=== PATIENT | female | born 1945 | race Caucasian/White ===

== ENCOUNTER → 2016-11-07 | Outpatient (CLI) | payer OTHER ==
[~2016-11-07] MED LIST: ALBU1AER9 INH; ALUMSUS2 PO; ALVESCO INH; CALCTAB7 PO; DICY10CA55 PO; FBR PO; HYCUDL5 PO; LOSA1TAB PO; MONT1TAB3 PO; OMEP40CA36 PO; WARF5TAB90 PO
[2016-11-07 13:26] LABS: BASO % 0.6 %; BASO ABS # 0.07 K/uL (0-0.2); COMPLETE YES; EOS % 4.6 %; HEMATOCRIT 39.8 % (37-47); IG% 0.3 %; LYMPH % 32.7 %; LYMPH ABS # 3.75 K/uL (1.2-3.4); MEAN CELL VOLUME 93.9 fL (80-100); MEAN CORPUSCULAR HEMOGLOBIN 31.8 pg (25-34); MEAN CORPUSCULAR HGB CONC 33.9 g/dl (32-36); MEAN PLATELET VOLUME 10.2 fL (7.4-10.4); MONO % 12.6 %; NEUT % 49.2 %; PLATELET COUNT 325 K/uL (130-400); RED BLOOD COUNT 4.24 M/uL (4.2-5.4); WHITE BLOOD COUNT 11.47 K/uL (4.8-10.8)
[2016-11-07 13:34] LABS: ALT/SGPT 37 U/L (12-78); AST/SGOT 23 U/L (15-37); BLOOD UREA NITROGEN 16 mg/dl (7-18); BUN/CREATININE RATIO 17.6 (10-20); CALCIUM 9.1 mg/dl (8.5-10.1); CARBON DIOXIDE 30 mmol/L (21-32); CHLORIDE 104 mmol/L (98-107); CREATININE 0.89 mg/dl (0.60-1.20); GLUCOSE 129 mg/dl (70-99); POTASSIUM 3.7 mmol/L (3.5-5.1); SODIUM 140 mmol/L (136-145)
[2016-11-07 13:39] LABS: ALKALINE PHOSPHATASE 104 U/L (45-117); CHOLESTEROL 235 mg/dl (0-200); CHOLESTEROL/HDL RATIO 4.7; FERRITIN 121.4 ng/ml (8.0-388.0); HDL CHOLESTEROL 50 mg/dl; LDL CHOLESTEROL CALCULATED 137 mg/dl; TRIGLYCERIDES 238 mg/dl (0-150); VERY LOW DENSITY LIPOPROT CALC 48 mg/dl
[2016-11-07 13:40] LABS: ESTIMATED AVERAGE GLUCOSE 143 mg/dl; HA1C FLAG Normal (Normal)
[2016-11-07 13:56] LABS: RATIO 22.7 mcg/mg (0-30.0)
== END | disposition home or self-care (01) ==
LOC: C.LABMFLN 08:54
PROVIDERS: ATTEND Family Medicine
DX: E11.9 Type 2 diabetes mellitus without complications (principal); E78.5 Hyperlipidemia, unspecified; L65.9 Nonscarring hair loss, unspecified

== ENCOUNTER → 2017-03-01 | Outpatient (CLI) | payer OTHER ==
[2017-03-01 13:24] LABS: ESTIMATED AVERAGE GLUCOSE 148 mg/dl; HA1C FLAG Normal (Normal)
[2017-03-01 13:45] LABS: ALT/SGPT 30 U/L (12-78); AST/SGOT 20 U/L (15-37); BLOOD UREA NITROGEN 22 mg/dl (7-18); BUN/CREATININE RATIO 23.1 (10-20); CARBON DIOXIDE 25 mmol/L (21-32); CHLORIDE 108 mmol/L (98-107); CHOLESTEROL 139 mg/dl (0-200); CREATININE 0.94 mg/dl (0.60-1.20); GLUCOSE 130 mg/dl (70-99); POTASSIUM 3.7 mmol/L (3.5-5.1); SODIUM 142 mmol/L (136-145)
[2017-03-01 13:48] LABS: CHOLESTEROL/HDL RATIO 2.8; HDL CHOLESTEROL 50 mg/dl; LDL CHOLESTEROL CALCULATED 53 mg/dl; PHOSPHORUS 3.3 mg/dl (2.5-4.9); TRIGLYCERIDES 178 mg/dl (0-150); VERY LOW DENSITY LIPOPROT CALC 36 mg/dl
[2017-03-01 14:24] LABS: CALCIUM 9.3 mg/dl (8.5-10.1)
== END | disposition home or self-care (01) ==
LOC: C.LABMFLN 08:06
PROVIDERS: ATTEND Family Medicine
DX: E78.5 Hyperlipidemia, unspecified (principal); E11.9 Type 2 diabetes mellitus without complications

== ENCOUNTER → 2017-09-25 | Outpatient (CLI) | payer OTHER ==
[2017-09-25 18:22] LABS: RATIO 8.7 mcg/mg (0-30.0)
[2017-09-25 18:25] LABS: ALT/SGPT 31 U/L (12-78); AST/SGOT 23 U/L (15-37); BLOOD UREA NITROGEN 22 mg/dl (7-18); BUN/CREATININE RATIO 22.9 (10-20); CARBON DIOXIDE 30 mmol/L (21-32); CHLORIDE 103 mmol/L (98-107); CREATININE 0.95 mg/dl (0.60-1.20); GLUCOSE 136 mg/dl (70-99); POTASSIUM 3.9 mmol/L (3.5-5.1); SODIUM 140 mmol/L (136-145)
[2017-09-25 18:29] LABS: CHOLESTEROL 135 mg/dl (0-200); HDL CHOLESTEROL 45 mg/dl; LDL CHOLESTEROL CALCULATED 41 mg/dl; TRIGLYCERIDES 245 mg/dl (0-150); VERY LOW DENSITY LIPOPROT CALC 49 mg/dl
[2017-09-26 06:03] LABS: ESTIMATED AVERAGE GLUCOSE 171 mg/dl; HA1C FLAG Normal (Normal)
== END | disposition home or self-care (01) ==
LOC: C.LABMFLN 14:02
PROVIDERS: ATTEND Physician Assistant
DX: J45.909 Unspecified asthma, uncomplicated (principal); E11.9 Type 2 diabetes mellitus without complications; K21.9 Gastro-esophageal reflux disease without esophagitis; E78.5 Hyperlipidemia, unspecified; I10 Essential (primary) hypertension

== ENCOUNTER → 2017-12-01 | Outpatient (CLI) | payer OTHER ==
--- NOTE | 2017-12-01 07:36 | DIAGNOSTIC IMAGING REPORT ---
L LOWER EXT JOINT WITHOUT CLINICAL HISTORY: LT ANKLE PAIN,R/O FRACTURE pain TECHNIQUE: MRI multi axial acquisition COMPARISON STUDY: None FINDINGS: Signal characteristics the osseous structures are unremarkable. No significant bone marrow replacing process. No significant soft tissue edematous change. Small heel spur. Mild degree of edema about the peroneal tendon. No evidence for ligamentous or tendinous disruption. IMPRESSION: 1. Small heel spur. 2. No acute bony antibody. 3. Mild peroneal tendinopathy The above report was generated using voice recognition software. It may contain grammatical, syntax or spelling errors. Electronically signed by: Aaron Burns M.D. 12/01/2017 7:35 AM Dictated Date/Time: 12/01/2017 7:31 AM
== END | disposition home or self-care (01) ==
LOC: C.MRI 06:04
PROVIDERS: ATTEND Physical Medicine & Rehabilitation
DX: M77.32 Calcaneal spur, left foot (principal)

== ENCOUNTER → 2018-02-15 | Outpatient (CLI) | payer OTHER ==
[2018-02-15 14:05] LABS: TRANSFERRIN 182 mg/dl (200-360)
[2018-02-19 11:28] LABS: PARVOVIRUS IgM INDEX 0.1 (<0.9)
== END | disposition home or self-care (01) ==
LOC: C.LABMFLN 11:06
PROVIDERS: ATTEND Internal Medicine Rheumatology
DX: M15.9 Polyosteoarthritis, unspecified (principal); M06.4 Inflammatory polyarthropathy